=== PATIENT | female | born 1980 | race Caucasian/White ===

== ENCOUNTER 2023-01-07 18:21 | Emergency (ER) | payer OTHER ==
[~2023-01-07] VITALS: Ht 167.6 cm; Wt 61.5 kg
[2023-01-07 19:40] LABS: URINE HCG NEGATIVE (NEG)
[2023-01-07 19:48] LABS: BILIRUBIN,URINE NEGATIVE (Neg); CLARITY,URINE SLIGHTLY CLOUDY (Clear); COLOR,URINE STRAW (Yellow); GLUCOSE, URINE NEGATIVE (Neg); KETONES,URINE NEGATIVE (Neg); LEUKOCYTE ESTERASE ,URINE NEGATIVE (Neg); NITRITES, URINE NEGATIVE (Neg); OCCULT BLOOD,URINE TRACE-INTACT (Neg); PROTEIN,URINE NEGATIVE (Neg); UROBILINOGEN,URINE 0.2 E.U/dL (0.2-1.0)
[2023-01-07 20:02] LABS: UA COLLECTION TYPE CLN CATCH MIDSTREAM
[2023-01-07 20:03] LABS: MUCUS STRANDS FEW /LPF (Neg); SQUAMOUS EPITHELIAL CELL,UR MANY /LPF (FEW)
[2023-01-07 20:04] LABS: RBC,URINE 20-50 /HPF (0-2)
[2023-01-07 20:05] LABS: BACTERIA,URINE 2+ /HPF (Neg); TRANSITIONAL EPI CELLS,URINE FEW /HPF; WBC,URINE 0-4 /HPF (0-4)
[2023-01-07] MEDS ORDERED: CEFD300C3 PO (22:29)
[2023-01-07] MEDS ORDERED: FLUC150T PO (22:29)
[2023-01-07 22:35] VITALS: BP 131/86; PULSE 82; RESP 18; TEMP 97.9; O2SAT 98
== END 2023-01-07 22:36 | disposition home or self-care (01) ==
LOC: ER 18:22
DX: B37.31 Acute candidiasis of vulva and vagina (principal); N39.0 Urinary tract infection, site not specified
CPT/HCPCS: 81001; 81025; 99283